=== PATIENT | female | born 1955 | race Caucasian/White ===

== ENCOUNTER → 2021-02-06 | Outpatient (CLI) | payer MEDICAID | LOC: COL.RAD 08:32 | DX: M47.812 Spondylosis without myelopathy or radiculopathy, cervical region (principal); M48.02 Spinal stenosis, cervical region ==

== ENCOUNTER → 2021-03-29 | Outpatient (CLI) | payer MEDICAID | LOC: COL.VAS 13:31 | DX: R60.0 Localized edema (principal) ==

== ENCOUNTER → 2021-10-25 | Outpatient (CLI) | payer MEDICAID | LOC: MC.RAD 14:03 | DX: Z12.31 Encounter for screening mammogram for malignant neoplasm of breast (principal) ==

== ENCOUNTER 2022-02-17 01:21 | Emergency (ER) | payer MEDICAID ==
[2022-02-17 01:31] VITALS: TEMP 97.7
[2022-02-17 02:15] LABS: BASO % 0.3 % (0.0-2.0); EOS # 0.1 K/mm3 (0.0-0.7); GRAN # 10.7 K/mm3 (1.4-6.5); GRAN % 84.3 % (42.2-75.2); HEMATOCRIT 40.9 % (37.0-47.0); LYMPH # 1.1 K/mm3 (1.2-3.4); LYMPH % 8.8 % (20.0-51.0); MEAN CELL VOLUME 85 fl (80.0-100.0); MEAN CORPUSCULAR HEMOGLOBIN 27 pg (27-31); MEAN CORPUSCULAR HGB CONC 32 g/dl (33.0-37.0); MEAN PLATELET VOLUME 10.2 fl (7.4-10.4); MONO # 0.7 K/mm3 (0.1-0.6); MONO % 5.1 % (1.7-9.3); PLATELET COUNT 238 K/mm3 (130-400); RED BLOOD COUNT 4.83 M/mm3 (4.10-5.30); REDCELL DISTRIBUTION WIDTH-CV 14.7 % (11.5-14.5)
[2022-02-17 02:34] LABS: ALBUMIN 3.5 gm/dL (3.4-4.8); BILIRUBIN,TOTAL 0.3 mg/dL (0.2-1.2); C-REACTIVE PROTEIN 1.15 mg/dL (0.00-0.50); CALCIUM 8.9 mg/dL (8.4-10.2); CREATININE, serum 0.91 mg/dL (0.57-1.11); POTASSIUM 4.3 mmol/L (3.5-4.5); TOTAL PROTEIN 7.6 gm/dL (6.2-8.1)
[2022-02-17] MEDS ORDERED: ZOFRAN ODT4 MG PO (04:14)
[2022-02-17 04:25] VITALS: BP 117/62; PULSE 88
== END 2022-02-17 04:25 | disposition home or self-care (01) ==
LOC: COL.ER 01:21
PROVIDERS: Emergency Medicine
DX: K52.9 Noninfective gastroenteritis and colitis, unspecified (principal)
CPT/HCPCS: J2405; J2550; J3010; J7030; Q9967

== ENCOUNTER → 2023-04-04 | Outpatient (CLI) | payer MEDICAID ==
[~2023-04-04] MED LIST: ZOFRAN ODT4 MG PO
== END ==
LOC: MC.RAD 12:58
DX: Z12.31 Encounter for screening mammogram for malignant neoplasm of breast (principal)